=== PATIENT | female | born 1930 | race Caucasian/White ===

== ENCOUNTER 2017-05-13 17:32 | Emergency (ER) | payer MEDICARE ==
--- NOTE | 2017-05-13 18:30 | ER Document Report ---
ED Medical Screen (RME) - General Chief Complaint: Constipation Stated Complaint: UNABLE TO URINATE/BOWEL MOVEMENT Time Seen by Provider: 05/13/17 17:59 Notes: Increase constipation. Feels like something wants to come out but will not. Noticed some blood in the stool today. Also having trouble urinating. Patient on Coumadin. TRAVEL OUTSIDE OF THE [place] IN LAST 30 DAYS: No - Related Data Allergies/Adverse Reactions: levofloxacin [From Levaquin] Allergy (Verified 05/13/17 17:35) nitrofurantoin [From Macrobid] Allergy (Verified 05/13/17 17:35) Penicillins Allergy (Verified 05/13/17 17:35) Sulfa (Sulfonamide Antibiotics) Allergy (Verified 05/13/17 17:35) Home Medications: Current Home Medications Acetaminophen 1 tab PO BID 05/13/17 [History] Calcium Carbonate/Vitamin D3 [Calcium 500-Vit D3 200 Tablet] 1 tab PO DAILY [History] Carvedilol [Carvedilol] 1 tab PO ASDIR PRN 05/13/17 [History] Cetirizine HCl [Zyrtec 10 mg Tablet] 1 tab PO DAILY 05/13/17 [History] Clindamycin HCl 4 tab PO ASDIR PRN 05/13/17 [History] Digoxin [Digoxin] 1 tab PO DAILY 05/13/17 [History] Fluticasone Propionate [Flonase Nasal [place] 50 Mcg/[place] 16 gm] 2 sprays NASL DAILY 05/13/17 [History] Furosemide [Furosemide] 2 tab PO QAM 05/13/17 [History] Loratadine [Claritin] 1 tab PO DAILY 05/13/17 [History] Montelukast Sodium [Singulair 10 mg Tablet] 1 tab PO QHS 05/13/17 [History] Multivitamin [Multiple Vitamins] 1 tab PO DAILY 05/13/17 [History] Omeprazole [Omeprazole] 1 tab PO DAILY 05/13/17 [History] Simvastatin [Simvastatin] 1 tab PO QHS 05/13/17 [History] Spironolactone [Spironolactone] 1 tab PO DAILY 05/13/17 [History] Warfarin Sodium [Warfarin Sodium] 1 tab PO DAILY 05/13/17 [History] Physical Exam - Vital signs Vitals: Temp Pulse Resp BP Pulse Ox 97.3 F 96 18 122/65 99 05/13/17 17:35 05/13/17 17:35 05/13/17 17:35 05/13/17 17:35 05/13/17 17:35 Course - Re-evaluation Re-evalutation: 05/13/17 18:30 I have greeted and performed a rapid initial assessment of this patient. A comprehensive ED assessment and evaluation of the patient, analysis of test results and completion of the medical decision making process will be conducted by additional ED providers. - Vital Signs Vital signs: Temp Pulse Resp BP Pulse Ox 97.3 F 96 18 122/65 99 05/13/17 17:35 05/13/17 17:35 05/13/17 17:35 05/13/17 17:35 05/13/17 17:35
[2017-05-13 19:04] LABS: APPEARANCE,URINE CLEAR; BILIRUBIN,URINE NEGATIVE (NEGATIVE); GLUCOSE, URINE NEGATIVE (NEGATIVE); KETONES,URINE NEGATIVE (NEGATIVE); LEUKOCYTE ESTERASE,URINE NEGATIVE (NEGATIVE); NITRITE,URINE NEGATIVE (NEGATIVE); PROTEIN,URINE NEGATIVE (NEGATIVE); URINE SPECIFIC GRAVITY 1.006; UROBILINOGEN,URINE NEGATIVE mg/dL (<2.0)
[2017-05-13] MEDS ORDERED: ACETAMINOPHEN 325 MG TABLET PO ONE (19:21)
--- NOTE | 2017-05-13 19:27 | ER Document Report ---
ED GI/ - General Mode of Arrival: Ambulatory Information source: Patient - HPI Patient complains to provider of: Abdominal pain, Dysuria Onset: This morning <KEEGAN AGLICIA - Last Filed: 05/14/17 04:35> <AIDE GUY - Last Filed: 05/14/17 04:36> - General Chief Complaint: Constipation Stated Complaint: UNABLE TO URINATE/BOWEL MOVEMENT Time Seen by Provider: 05/13/17 17:59 Notes: Patient is an 87 year old female presenting to the emergency department complaining of dribbling of urine and constipation onset this morning. Patients associated symptoms include incontinence and lower abdominal pain. Patient states that she tried a suppository as well has a laxative this afternoon but they did not help. Patient states that she has not taken any muscle relaxers or narcotics. Patient states that she has been gassy. Patient denies any vomiting or fever. Patient last BM was 2 days ago. (KEEGAN GALICIA) - Related Data Allergies/Adverse Reactions: levofloxacin [From Levaquin] Allergy (Verified 05/13/17 17:35) nitrofurantoin [From Macrobid] Allergy (Verified 05/13/17 17:35) Penicillins Allergy (Verified 05/13/17 17:35) Sulfa (Sulfonamide Antibiotics) Allergy (Verified 05/13/17 17:35) Home Medications: Current Home Medications Acetaminophen 1 tab PO BID 05/13/17 [History] Calcium Carbonate/Vitamin D3 [Calcium 500-Vit D3 200 Tablet] 1 tab PO DAILY [History] Carvedilol [Carvedilol] 1 tab PO ASDIR PRN 05/13/17 [History] Cetirizine HCl [Zyrtec 10 mg Tablet] 1 tab PO DAILY 05/13/17 [History] Clindamycin HCl 4 tab PO ASDIR PRN 05/13/17 [History] Digoxin [Digoxin] 1 tab PO DAILY 05/13/17 [History] Fluticasone Propionate [Flonase Nasal [place] 50 Mcg/[place] 16 gm] 2 sprays NASL DAILY 05/13/17 [History] Furosemide [Furosemide] 2 tab PO QAM 05/13/17 [History] Loratadine [Claritin] 1 tab PO DAILY 05/13/17 [History] Montelukast Sodium [Singulair 10 mg Tablet] 1 tab PO QHS 05/13/17 [History] Multivitamin [Multiple Vitamins] 1 tab PO DAILY 05/13/17 [History] Omeprazole [Omeprazole] 1 tab PO DAILY 05/13/17 [History] Simvastatin [Simvastatin] 1 tab PO QHS 05/13/17 [History] Spironolactone [Spironolactone] 1 tab PO DAILY 05/13/17 [History] Warfarin Sodium [Warfarin Sodium] 1 tab PO DAILY 05/13/17 [History] Past Medical History - General Information source: Patient - Social History Smoking Status: Never Smoker Frequency of alcohol use: None Drug Abuse: None Patient has suicidal ideation: No Patient has homicidal ideation: No Past Surgical History: Reports: Hx Hysterectomy <KEEGAN GALICIA - Last Filed: 05/14/17 04:35> - Social History Family History: Reviewed & Not Pertinent <AIDE GUY - Last Filed: 05/14/17 04:36> Review of Systems - Review of Systems Constitutional: No symptoms reported. denies: Fever EENT: No symptoms reported Cardiovascular: No symptoms reported Respiratory: No symptoms reported Gastrointestinal: See HPI, Abdominal pain, Constipation Genitourinary: See HPI, Dysuria Female Genitourinary: No symptoms reported Musculoskeletal: No symptoms reported Skin: No symptoms reported Hematologic/Lymphatic: No symptoms reported Neurological/Psychological: No symptoms reported -: Yes All other systems reviewed and negative <KEEGAN GALICIA - Last Filed: 05/14/17 04:35> Physical Exam <KEEGAN GALICIA - Last Filed: 05/14/17 04:35> <AIDE GUY - Last Filed: 05/14/17 04:36> - Vital signs Vitals: Temp Pulse Resp BP Pulse Ox 97.3 F 96 18 122/65 99 05/13/17 17:35 05/13/17 17:35 05/13/17 17:35 05/13/17 17:35 05/13/17 17:35 - Notes Notes: GENERAL: Alert, interacts well. No acute distress. HEAD: Normocephalic, atraumatic. EYES: Pupils equal, round, and reactive to light. Extraocular movements intact. ENT: Oral mucosa moist, tongue midline. NECK: Full range of motion. Supple. Trachea midline. LUNGS: Clear to auscultation bilaterally, no wheezes, rales, or rhonchi. No respiratory distress. HEART: Regular rate and rhythm. No murmurs, gallops, or rubs. ABDOMEN: Some tenderness to palpation to the suprapubic region. Semi-distended lower abdomen. Bowel sounds present in all 4 quadrants. No rebound or guarding. EXTREMITIES: Moves all 4 extremities spontaneously. No edema, radial and dorsalis pedis pulses 2/4 bilaterally. No cyanosis. NEUROLOGICAL: Alert and oriented x3. Normal speech. PSYCH: Normal affect, normal mood. SKIN: Warm, dry, normal turgor. No rashes or lesions noted. RECTAL: No blood, some hemorrhoids. Stool is semi-firm, not impacted with soft stool leaking around it located in the rectum. (KEEGAN GALICIA) Course - Laboratory Result Diagrams: 05/13/17 19:18 05/13/17 19:50 <KEEGAN GALICIA - Last Filed: 05/14/17 04:35> - Laboratory Result Diagrams: 05/13/17 19:18 05/13/17 19:50 <AIDE GUY - Last Filed: 05/14/17 04:36> - Re-evaluation Re-evalutation: 05/13/17 22:03 Rechecked after she had a large bowel movement and does not have any signs of obstruction on x-ray, patient's abdomen is actually more tender than before, tender palpation suprapubically, bladder still appears distended and feels distended. Patient will have a CT scan of the abdomen and pelvis to rule out diverticulitis, also the Carney catheter placed for the urinary retention. 05/14/17 02:37 Only approximately 100 mL's of urine came out after placement of Carney catheter , no evidence of obstruction now that she has had a large soft bowel movement with a lot of urine as well prior to going for her acute abdominal series. CAT scan shows benign cyst of the right kidney, no evidence of cholecystitis, no masses or inflammatory changes of the bowels, appendix is normal, pelvis has a unusual reading of Carney catheter with tip at the anterior aspect of the expected urinary bladder with possible mild inflammation and questionable small gas bubble anterior to the urinary bladder, cannot exclude penetration of the anterior urinary bladder wall by a Carney catheter. I find this very unlikely at this time as the patient's pain has actually decreased since the placement of the Carney catheter and I would expect it to have worsened had not penetrated the bladder wall, also there is no blood in the Carney catheter. Patient's abdomen is much less tender than on initial or repeat exam, still has minimal suprapubic tenderness palpation, no abdominal distention was time, she has had 2-3 more episodes of cramping abdominal pain followed by small amount of liquid stool. At this time there does not appear to be any acute intra- abdominal process, no surgical process. Discussed patient's options with patient and daughter. They are both agreeable to being discharged to home as opposed to being observed overnight in the hospital by the surgeon. They will return for fevers, worsening abdominal pain, blood in the stool or any new or concerning symptoms. There is no longer any evidence of constipation. (AIDE GUY) - Vital Signs Vital signs: Temp Pulse Resp BP Pulse Ox 98.7 F 88 20 97/45 L 96 05/14/17 03:34 05/14/17 03:34 05/14/17 03:34 05/14/17 03:34 05/14/17 03:34 - Laboratory Laboratory results interpreted by me: 05/13/17 05/13/17 05/13/17 18:55 19:18 19:18 WBC 15.7 H RBC 3.49 L Hgb 11.9 L Hct 35.1 L MCV 100 H MCH 34.1 H Seg Neutrophils % 87.4 H Lymphocytes % 5.7 L Absolute Neutrophils 13.7 H PT 28.2 H BUN Est GFR (Non-Af Amer) Glucose Total Bilirubin Urine Ascorbic Acid 20 H 05/13/17 19:50 WBC RBC Hgb Hct MCV MCH Seg Neutrophils % Lymphocytes % Absolute Neutrophils PT BUN 42 H Est GFR (Non-Af Amer) 52 L Glucose 113 H Total Bilirubin 1.7 H Urine Ascorbic Acid Discharge <KEEGAN GALICIA - Last Filed: 05/14/17 04:35> <AIDE GUY - Last Filed: 05/14/17 04:36> - Discharge Clinical Impression: Lower abdominal pain of unknown etiology Constipation Qualifiers: Constipation type: unspecified constipation type Qualified Code(s): K59.00 - Constipation, unspecified Condition: Stable Disposition: HOME, SELF-CARE Additional Instructions: Your constipation appears to have resolved. You may have some liquid stool and continued cramping of your abdomen due to the oral contrast that we gave you and the laxative she took earlier. Should she develop large volumes of liquid stool, fevers or uncontrolled abdominal pain please return to the emergency department immediately. [place] Attestation: 05/14/17 04:35 I personally performed the services described in the documentation, reviewed and edited the documentation which was dictated to the scribe in my presence, and it accurately records my words and actions. (AIDE GUY) Scribe Documentation - Scribe Written by Angélica:: Angélica Rios, 05/13/2017 19:33 acting as scribe for :: Arabella <KEEGAN GALICIA - Last Filed: 05/14/17 04:35>
[2017-05-13 19:34] LABS: ABSOLUTE LYMPHOCYTES (AUTO) 0.9 10^3/uL (0.5-4.7); ABSOLUTE NEUT (AUTO) 13.7 10^3/uL (1.7-8.2); BASOPHILS % (AUTO) 0.3 % (0-2); EOSINOPHILS % (AUTO) 0.1 % (0-6); HEMATOCRIT 35.1 % (36.0-47.0); HEMOGLOBIN 11.9 g/dL (12.0-15.5); HGB HCT DIFFERENCE 0.6; LYMPHOCYTES % (AUTO) 5.7 % (13-45); MEAN CORPUSCULAR HEMOGLOBIN 34.1 pg (27.0-33.4); MEAN CORPUSCULAR VOLUME 100 fl (80-97); MONOCYTES % (AUTO) 6.5 % (3-13); RED BLOOD COUNT 3.49 10^6/uL (3.72-5.28); RED CELL DISTRIBUTION WIDTH 13.2 % (11.5-14.0); SEGMENTED NEUTROPHILS % (AUTO) 87.4 % (42-78); WHITE BLOOD COUNT 15.7 10^3/uL (4.0-10.5)
[2017-05-13 19:40] LABS: PROTHROMBIN TIME 28.2 SEC (11.4-15.4)
[2017-05-13 20:19] LABS: ALANINE AMINOTRANSFERASE 29 U/L (9-52); ALBUMIN 4.4 g/dL (3.5-5.0); ALKALINE PHOSPHATASE 79 U/L (38-126); ANION GAP 18 (5-19); ASPARTATE AMINO TRANSFERASE 25 U/L (14-36); BILIRUBIN,DIRECT 0.4 mg/dL (0.0-0.4); BILIRUBIN,TOTAL 1.7 mg/dL (0.2-1.3); BLOOD UREA NITROGEN 42 mg/dL (7-20); CALCIUM 9.7 mg/dL (8.4-10.2); CARBON DIOXIDE 22 mmol/L (22-30); CHLORIDE 100 mmol/L (98-107); CREATININE RESULT 1.01 mg/dL (0.52-1.25); GLUCOSE 113 mg/dL (75-110); LIPASE 218.3 U/L (23-300); POTASSIUM 4.5 mmol/L (3.6-5.0); SODIUM 139.6 mmol/L (137-145); TOTAL PROTEIN 7.5 g/dL (6.3-8.2)
--- NOTE | 2017-05-13 21:40 | RADIOLOGY REPORT (SQ) ---
EXAM DESCRIPTION: ACUTE ABDOMEN SERIES COMPLETED DATE/TIME: 05/13/2017 9:17 pm REASON FOR STUDY: abd pain COMPARISON: None. NUMBER OF VIEWS: Three views. TECHNIQUE: Frontal chest, supine abdomen and upright abdomen radiographic images acquired. LIMITATIONS: None. FINDINGS: CHEST: Lungs clear of infiltrates. 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 Mild car diomegaly. No hilar enlargement. No acute bony changes. FREE AIR: None. No abnormal gas collections. BOWEL GAS PATTERN: Nonobstructive pattern. No dilated loops or air fluid levels. Gaseous distention of transverse colon. Stool in the ascending colon and rectosigmoid. CALCIFICATIONS: No suspicious calcifications. HARDWARE: None in the abdomen. SOFT TISSUES: No gross mass or suggestion of organomegaly. BONES: No acute fracture. No worrisome bone lesions. OTHER: No other significant finding. IMPRESSION: NO RADIOGRAPHIC EVIDENCE FOR ACUTE ABDOMINAL DISEASE. TECHNICAL DOCUMENTATION: JOB ID: [id number] [employer]- All Rights Reserved
--- NOTE | 2017-05-14 01:13 | RADIOLOGY REPORT (SQ) ---
EXAM DESCRIPTION: CT ABD/PELVIS WITH IV ORAL COMPLETED DATE/TIME: 05/14/2017 12:36 am REASON FOR STUDY: suprapubic tenderness to palp, elevated WBC COMPARISON: CR, 1 day prior. TECHNIQUE: CT scan of the abdomen and pelvis performed using helical scanning technique with dynamic intravenous contrast injection. No oral contrast. Images reviewed with lung, soft tissue, and bone windows. Reconstructed coronal and sagittal MPR images reviewed. Delayed images for evaluation of the urinary system also acquired. All images stored on PACS. All CT scanners at this facility use dose modulation, iterative reconstruction, and/or weight based d osing when appropriate to reduce radiation dose to as low as reasonably achievable (ALARA). [facility]: Dose Right [facility]: CareDose [facility]: Dose Right [facility]: Teradose 4D [facility]: Llesiant CONTRAST TYPE AND DOSE: contrast/concentration: Isovue 370.00 mg/ml; Total Contrast Delivered: 51.0 ml; Total Saline Delivered: 65.0 ml RENAL FUNCTION: Creatinine 1.0 RADIATION DOSE: CT Rad equipment meets quality standard of care and radiation dose reduction techniq ues were employed. CTDIvol: 6.1 mGy. DLP: 529 mGy-cm.. LIMITATIONS: None. FINDINGS: LOWER CHEST: No significant findings. No nodules or infiltrates. Moderate cardiac enlarge ment. LIVER: Normal size. No masses. No dilated ducts. SPLEEN: Normal size. No focal lesions. PANCREAS: No masses. No significant calcifications. No adjacent inflammation or peripancreatic fluid collections. Pancreatic duct not dilated. GALLBLADDER: No identified stones by CT criteria. No inflammatory changes to suggest cholecystitis. ADRENAL GLANDS: No significant masses or asymmetry. RIGHT KIDNEY AND URETER: No solid masses. No significant calcifications. No hydronephrosis or hyd roureter. 1.4 cm likely benign cyst of the right kidney. LEFT KIDNEY AND URETER: No solid masses. No significant calcifications. No hydronephrosis or hydr oureter. AORTA AND VESSELS: No aneurysm. No dissection. Renal arteries, SMA, celiac without stenosis. RETROPERITONEUM: No retroperitoneal adenopathy, hemorrhage or masses. BOWEL AND PERITONEAL CAVITY: No masses or inflammatory changes. No free fluid or peritoneal masses. APPENDIX: Normal. PELVIS: No mass. No free fluid. Adams catheter with the tip at the anterior aspect of the expected urinary bladder possible mild inflammation and questionable small gas bubble anterior to the urinary bladder, image 65 of series 6 consistent with tenting of the anterior urinary bladder wall; cannot ex clude small current/recent penetration of the anterior urinary bladder wall by the adams catheter. U rinary bladder is decompressed with small intra luminal post excretion contrast only. ABDOMINAL WALL: No masses. No hernias. BONES: Moderate-severe T10 anterior compression deformity of indeterminate age. OTHER: No other significant finding. IMPRESSION: 1. Adams catheter with mild inflammation and tenting associated with the anterior urina ry bladder wall ; cannot exclude subcentimeter current/recent penetration of the anterior urinary geremias dder wall by the Adams catheter in this patient with described suprapubic pain. There is no signific ant free fluid and no extraluminal contrast on post excretion images of the collecting system. 2. M oderate-severe T10 anterior compression deformity of indeterminate age. TECHNICAL DOCUMENTATION: JOB ID: [id number] Quality ID # [id number]: Final reports with documentation of one or more dose reduction techniques (e.g., Au tomated exposure control, adjustment of the mA and/or kV according to patient size, use of iterative reconstruction technique) 2010 [employer]- All Rights Reserved
[2017-05-14 03:39] VITALS: BP 97/45
== END 2017-05-14 03:39 | disposition home or self-care (01) ==
LOC: ER 17:32
DX: K59.00 Constipation, unspecified (principal); R10.30 Lower abdominal pain, unspecified; R33.9 Retention of urine, unspecified; Z79.899 Other long term (current) drug therapy
CPT/HCPCS: 99284; 51701; 51702; 36415; 83690; 85025; 85610; 80053; 81001; 74022; 74177; A9270